=== PATIENT | female | born 1990 | race Caucasian/White ===

== ENCOUNTER → 2017-04-16 | Outpatient (CLI) | payer OTHER ==
--- NOTE | 2017-04-16 13:58 | REP ---
Digital diagnostic bilateral mammography with CAD: History: Palpable lump in the left breast. The patient reports that the clinician breast exam was positive for lumps in the right breast location unknown. She cannot feel these. A skin marker is affixed to the skin at the site of the palpable lump on the left. Comparison left breast sonography is reviewed from [facility] dated March 12, 2017. Mammographic findings: Routine views of the right breast were obtained. Routine views of the left breast are augmented by magnified focal spot compression CC, true MLO, and MLO views obtained with a skin marker in place. This projects superiorly at 12 o'clock. The breast parenchyma is heterogeneously dense in a pattern which inhibits the sensitivity of mammography. No dominant density or mass lesion is seen. No spiculation, architectural distortion or worrisome skin change is seen. No microcalcification is observed. Impression: BIRADS category 2 benign bilateral mammography. This negative report should not dissuade one from biopsy of a palpable lump depending on its clinical characteristics. Clinical follow-up is advised. BI-RADS/ACR category 2 mammogram. Benign finding(s). Routine annual screening mammography (for women over age 40). This mammogram was interpreted with the aid of an FDA-approved computer-aided detection system. The patient states she had a clinical breast exam in March 2017 The patient letter being requested is M2 dense. Signed by Pa Gómez MD 04/16/2017 05:17 P
== END ==
LOC: M RAD 12:44
PROVIDERS: ATTEND Surgery
DX: N63 Unspecified lump in breast (principal)

== ENCOUNTER → 2018-03-23 | Outpatient (REF) | payer OTHER | LOC: M SFHCLERA 15:48 | DX: R35.0 Frequency of micturition (principal) ==

== ENCOUNTER 2018-08-04 11:40 | Emergency (ER) | payer OTHER ==
[~2018-08-04] VITALS: Ht 162.6 cm; Wt 59.1 kg
[2018-08-04 13:16] LABS: BASO % 0.4 % (0.0-1.0); EOS % 0.4 % (0.0-3.0); HEMATOCRIT 42.7 % (36.0-47.0); HEMOGLOBIN 14.8 g/dl (12.0-15.5); LYMPH # 1.7 10^3/uL (1.5-6.5); LYMPH % 22.2 % (24.0-44.0); MEAN CORPUSCULAR HEMOGLOBIN 32.1 pg (27.0-33.0); MEAN CORPUSCULAR HGB CONC 34.7 g/dl (32.0-36.5); MEAN CORPUSCULAR VOLUME 92.6 fl (80.0-96.0); MONO # 0.5 10^3/uL (0.0-0.8); MONO % 6.5 % (0.0-5.0); NEUTROPHILS # 5.4 10^3/uL (1.8-7.7); NEUTROPHILS % 70.2 % (36.0-66.0); PLATELET COUNT, AUTOMATED 212 10^3/uL (150-450); RED BLOOD COUNT 4.61 10^6/uL (4.00-5.40); WHITE BLOOD COUNT 7.7 10^3/uL (4.0-10.0)
[2018-08-04 13:37] LABS: BLOOD UREA NITROGEN 10 MG/DL (7-18); CALCIUM LEVEL 8.8 MG/DL (8.5-10.1); CARBON DIOXIDE LEVEL 26 MEQ/L (21-32); CHLORIDE LEVEL 103 MEQ/L (98-107); CREATININE FOR GFR 0.75 MG/DL (0.55-1.30); GLOMERULAR FILTRATION RATE > 60.0 (>60); GLUCOSE, FASTING 90 MG/DL (70-100); POTASSIUM SERUM 3.8 MEQ/L (3.5-5.1); SODIUM LEVEL 136 MEQ/L (136-145)
[2018-08-04 13:59] VITALS: BP 129/77
[2018-08-04 15:01] LABS: CHLAMYDIA DNA AMPLIFICATION NEGATIVE (NEGATIVE); GC DNA AMPLIFICATION NEGATIVE (NEGATIVE)
[2018-08-04] MEDS ORDERED: FLAG500T PO (15:11)
== END 2018-08-04 14:00 | disposition home or self-care (01) ==
LOC: M ED 11:40
DX: N76.0 Acute vaginitis (principal); Z97.5 Presence of (intrauterine) contraceptive device; Z88.0 Allergy status to penicillin

== ENCOUNTER → 2019-01-15 | Outpatient (REF) | payer OTHER ==
[~2019-01-15] MED LIST: FLAG500T PO
== END ==
LOC: M LAB REF 16:12
PROVIDERS: ATTEND Physician Assistant
DX: N39.0 Urinary tract infection, site not specified (principal)